=== PATIENT | female | born 1980 | race Caucasian/White ===

== ENCOUNTER 2017-05-19 19:01 | Emergency (ER) | payer MEDICAID ==
[2017-05-19] MEDS ORDERED: Sodium Chloride 0.9% 10 ML Syringe FLUSH PRN (20:32)
[2017-05-19] MEDS ORDERED: Ketorolac 30 MG/ML SDV IVPUSH ONE (20:33)
[2017-05-19] MEDS ORDERED: Ondansetron 4 MG/2 ML SDV IVPUSH ONE (20:33)
--- NOTE | 2017-05-19 20:35 | EDM.PDOC ---
ED HPI GENERAL MEDICAL PROBLEM - General Chief Complaint: Abdominal Pain Stated Complaint: ABDOMIN PAIN IN LOWER OVARY AERA Time Seen by Provider: 05/19/17 20:33 Source of Information: Reports: Patient, RN Notes Reviewed History Limitations: Reports: No Limitations - History of Present Illness INITIAL COMMENTS - FREE TEXT/NARRATIVE: 36-year-old female presents emergency department day complaint of abdominal pain , she states been going on for about 3 days his progressively gotten worse the pain is fairly constant but it does get more intense at times she does feel nauseated no vomiting no trouble with bowel movements or urination does have a history of ovarian cysts only abdominal surgeries or section Bilateral Abdomen Pain Score (Numeric/FACES): 7 - Related Data Allergies Allergy/AdvReac Type Severity Reaction Status Date / Time ancids Allergy Swelling Uncoded 05/19/17 19:53 Home Meds: Home Meds metFORMIN [Glucophage] 500 mg PO BIDMEALS 05/19/17 [History] Past Medical History Genitourinary History: Reports: Other (See Below) Other Genitourinary History: hx of ovarian cysts 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: Endocrine/Metabolic History: Reports: Diabetes, Type II Hematologic History: Reports: Blood Transfusion(s) - Infectious Disease History Infectious Disease History: Reports: Chicken Pox - Past Surgical History Female Surgical History: Reports: Section Social & Family History - Tobacco Use Smoking Status *Q: Current Every Day Smoker Years of Tobacco use: 20 Packs/Tins Daily: 0.5 Used Tobacco, but Quit: No Second Hand Smoke Exposure: Yes - Caffeine Use Caffeine Use: Reports: Coffee, Soda - Recreational Drug Use Recreational Drug Use: No ED ROS GENERAL - Review of Systems Review Of Systems: See Below Constitutional: Denies: Fever, Chills HEENT: Reports: No Symptoms Respiratory: Reports: No Symptoms Cardiovascular: Reports: No Symptoms GI/Abdominal: Reports: Abdominal Pain, Nausea. Denies: Vomiting : Reports: No Symptoms Musculoskeletal: Reports: No Symptoms Skin: Reports: No Symptoms ED EXAM, GI/ABD - Physical Exam Exam: See Below Text/Narrative:: General: Female, moderate discomfort secondary to pain, alert and oriented x3 HEENT: head is atraumatic normocephalic, eyes pupils equal round reactive to light, sclera clear no conjunctivitis appreciated. Ears tympanic membranes clear and valenzuela landmarks and light reflex are present bilaterally canals are clear. Nose no septal deviation, nares are clear, no blood present. Mouth mucosa is moist and pink no erythema or exudate noted in soft palate, tongue is midline uvula is midline, dentition is intact. Neck: Supple no thyromegaly no tracheal deviation. Nodes: Cervical nodes subclavicular nodes nontender no palpable lymphadenopathy noted. Lungs: clear to auscultation bilaterally with symmetrical respirations, no adventitious noise appreciated. CV: Regular rate and rhythm S1 and S2 appreciated no murmurs rubs or gallops noted. Abdomen: Soft, tender left lower quadrant, no palpable masses or organomegaly appreciated, no distention positive for guarding bowel sounds are present, . Neuro: Cranial nerves II through XII grossly intact Skin: Warm and dry, intact Extremities: No lower extremity edema appreciated, Course - Vital Signs Last Recorded V/S: Last Vital Signs Temp 97.6 F 05/19/17 20:00 Pulse 74 05/19/17 22:03 Resp 18 05/19/17 22:03 BP 124/62 05/19/17 22:03 Pulse Ox 97 05/19/17 22:03 - Orders/Labs/Meds Orders: Active Orders 24 hr Category Date Time Status Peripheral IV Care [RC] . DIRECTED Care 05/19/17 20:32 Active Abdomen Pelvis w Cont [CT] Urgent Exams 05/19/17 20:32 Taken Iopamidol [Isovue-300 (61%)] Med 05/19/17 21:08 Active 150 ml IV . DIRECTED PRN Sodium Chloride 0.9% [Normal Saline] 1,000 ml Med 05/19/17 20:45 Active IV ASDIRECTED Sodium Chloride 0.9% [Normal Saline] 86 ml Med 05/19/17 21:15 Active IV ASDIRECTED Sodium Chloride 0.9% [Saline Flush] Med 05/19/17 20:32 Active 10 ml FLUSH ASDIRECTED PRN Peripheral IV Insertion Adult [OM.PC] Urgent Oth 05/19/17 20:32 Ordered Medication Orders Sodium Chloride (Normal Saline) 1,000 mls @ 999 mls/hr IV ASDIRECTED CIRO Last Admin: 05/19/17 20:56 Dose: 999 mls/hr Sodium Chloride (Normal Saline) 86 mls @ 3 mls/sec IV ASDIRECTED CIRO Last Admin: 05/19/17 21:37 Dose: 3.5 mls/sec Iopamidol (Isovue-300 (61%)) 150 ml IV . DIRECTED PRN PRN Reason: RADIOLOGY EXAM Stop: 05/20/17 21:09 Last Admin: 05/19/17 21:37 Dose: 150 ml Sodium Chloride (Saline Flush) 10 ml FLUSH ASDIRECTED PRN PRN Reason: Keep Vein Open Labs: Laboratory Tests 05/19/17 05/19/17 05/19/17 Range/Units 20:32 20:45 20:45 WBC 8.3 (4.5-11.0) K/uL RBC 5.40 (3.30-5.50) M/uL Hgb 16.7 H (12.0-15.0) g/dL Hct 48.1 H (36.0-48.0) % MCV 89 (80-98) fL MCH 31 (27-31) pg MCHC 35 (32-36) % Plt Count 211 (150-400) K/uL Neut % (Auto) 39 (36-66) % Lymph % (Auto) 47 H (24-44) % [place] % (Auto) 8 H (2-6) % Eos % (Auto) 3 (2-4) % Baso % (Auto) 2 H (0-1) % Sodium 137 L (140-148) mmol/L Potassium 4.1 (3.6-5.2) mmol/L Chloride 104 (100-108) mmol/L Carbon Dioxide 25 (21-32) mmol/L Anion Gap 12.1 (5.0-14.0) mmol/L BUN 7 (7-18) mg/dL Creatinine 0.6 (0.6-1.0) mg/dL Est Cr Clr Drug Dosing 105.16 mL/min Estimated GFR (MDRD) > 60 (>60) Glucose 89 (74-106) mg/dL Lactic Acid 1.3 (0.4-2.0) mmol/L Calcium 9.0 (8.5-10.1) mg/dL Total Bilirubin 0.3 (0.2-1.0) mg/dL AST 33 (15-37) U/L ALT 40 (12-78) U/L Alkaline Phosphatase 74 (46-116) U/L Total Protein 8.4 H (6.4-8.2) g/dL Albumin 3.7 (3.4-5.0) g/dL Globulin 4.7 H (2.3-3.5) g/dL Albumin/Globulin Ratio 0.8 L (1.2-2.2) Lipase 282 (73-393) U/L Urine Color Urine Appearance Urine pH (4.5-8.0) Ur Specific [place] (1.008-1.030) Urine Protein (NEGATIVE) mg/dL Urine Glucose (UA) (NEGATIVE) mg/dL Urine Ketones (NEGATIVE) mg/dL Urine Occult Blood (NEGATIVE) Urine Nitrite (NEGATIVE) Urine Bilirubin (NEGATIVE) Urine Urobilinogen (NORMAL) mg/dL Ur Leukocyte Esterase (NEGATIVE) Urine RBC (0-5) Urine WBC (0-5) Ur Epithelial Cells Amorphous Sediment Urine Bacteria Urine Mucus Urine HCG, Qual 05/19/17 05/19/17 Range/Units 20:50 20:50 WBC (4.5-11.0) K/uL RBC (3.30-5.50) M/uL Hgb (12.0-15.0) g/dL Hct (36.0-48.0) % MCV (80-98) fL MCH (27-31) pg MCHC (32-36) % Plt Count (150-400) K/uL Neut % (Auto) (36-66) % Lymph % (Auto) (24-44) % [place] % (Auto) (2-6) % Eos % (Auto) (2-4) % Baso % (Auto) (0-1) % Sodium (140-148) mmol/L Potassium (3.6-5.2) mmol/L Chloride (100-108) mmol/L Carbon Dioxide (21-32) mmol/L Anion Gap (5.0-14.0) mmol/L BUN (7-18) mg/dL Creatinine (0.6-1.0) mg/dL Est Cr Clr Drug Dosing mL/min Estimated GFR (MDRD) (>60) Glucose (74-106) mg/dL Lactic Acid (0.4-2.0) mmol/L Calcium (8.5-10.1) mg/dL Total Bilirubin (0.2-1.0) mg/dL AST (15-37) U/L ALT (12-78) U/L Alkaline Phosphatase (46-116) U/L Total Protein (6.4-8.2) g/dL Albumin (3.4-5.0) g/dL Globulin (2.3-3.5) g/dL Albumin/Globulin Ratio (1.2-2.2) Lipase (73-393) U/L Urine Color Yellow Urine Appearance Clear Urine pH 6.0 (4.5-8.0) Ur Specific [place] 1.015 (1.008-1.030) Urine Protein Negative (NEGATIVE) mg/dL Urine Glucose (UA) Normal (NEGATIVE) mg/dL Urine Ketones Negative (NEGATIVE) mg/dL Urine Occult Blood Negative (NEGATIVE) Urine Nitrite Negative (NEGATIVE) Urine Bilirubin Negative (NEGATIVE) Urine Urobilinogen Normal (NORMAL) mg/dL Ur Leukocyte Esterase Negative (NEGATIVE) Urine RBC Not seen (0-5) Urine WBC 0-5 (0-5) Ur Epithelial Cells Few Amorphous Sediment Not seen Urine Bacteria Few Urine Mucus Rare Urine HCG, Qual Negative Meds: Medications Generic Name Dose Route Start Last Admin Trade Name Freq PRN Reason Stop Dose Admin Sodium Chloride 1,000 mls @ 999 mls/hr 05/19/17 20:45 05/19/17 20:56 Normal Saline IV 999 mls/hr ASDIRECTED CIRO Administration Sodium Chloride 86 mls @ 3 mls/sec 05/19/17 21:15 05/19/17 21:37 Normal Saline IV 3.5 mls/sec ASDIRECTED CIRO Administration Iopamidol 150 ml 05/19/17 21:08 05/19/17 21:37 Isovue-300 (61%) IV 05/20/17 21:09 150 ml . DIRECTED PRN Administration RADIOLOGY EXAM Sodium Chloride 10 ml 05/19/17 20:32 Saline Flush FLUSH ASDIRECTED PRN Keep Vein Open Discontinued Medications Generic Name Dose Route Start Last Admin Trade Name Freq PRN Reason Stop Dose Admin Ketorolac Tromethamine 30 mg 05/19/17 20:33 05/19/17 20:58 Toradol IVPUSH 05/19/17 20:34 30 mg ONETIME ONE Administration Ondansetron HCl 4 mg 05/19/17 20:33 05/19/17 20:57 Zofran IVPUSH 05/19/17 20:34 4 mg ONETIME ONE Administration Sodium Chloride 10 ml 05/19/17 21:08 Saline Flush FLUSH 05/19/17 21:09 ONETIME ONE Departure - Departure Time of Disposition: 23:00 Disposition: Home, Self-Care 01 Condition: Good Clinical Impression: Cyst, ovary, follicular - Discharge Information Forms: ED Department Discharge Additional Instructions: Use ibuprofen for baseline pain control, use hydrocodone for breakthrough pain, Please followup with your primary care provider in 2-3 days if not better, please call return to the emergency department with worsening of symptoms. - My Orders Last 24 Hours: My Active Orders 05/19/17 20:32 Peripheral IV Care [RC] . DIRECTED Abdomen Pelvis w Cont [CT] Urgent Sodium Chloride 0.9% [Saline Flush] 10 ml FLUSH ASDIRECTED PRN Peripheral IV Insertion Adult [OM.PC] Urgent 05/19/17 20:45 Sodium Chloride 0.9% [Normal Saline] 1,000 ml IV ASDIRECTED 05/19/17 21:08 Iopamidol [Isovue-300 (61%)] 150 ml IV . DIRECTED PRN 05/19/17 21:15 Sodium Chloride 0.9% [Normal Saline] 86 ml IV ASDIRECTED - Assessment/Plan Last 24 Hours: My Active Orders 05/19/17 20:32 Peripheral IV Care [RC] . DIRECTED Abdomen Pelvis w Cont [CT] Urgent Sodium Chloride 0.9% [Saline Flush] 10 ml FLUSH ASDIRECTED PRN Peripheral IV Insertion Adult [OM.PC] Urgent 05/19/17 20:45 Sodium Chloride 0.9% [Normal Saline] 1,000 ml IV ASDIRECTED 05/19/17 21:08 Iopamidol [Isovue-300 (61%)] 150 ml IV . DIRECTED PRN 05/19/17 21:15 Sodium Chloride 0.9% [Normal Saline] 86 ml IV ASDIRECTED Plan: Assessment Acuity = acute Site and laterality = right involuting follicle ovary Etiology = unclear etiology Manifestations = pain, nausea Location of injury = Home Lab values = CBC unremarkable sodium low at 137 consistent hyponatremia, urinalysis unremarkable, CT describes the lesion above Plan I did review lab work and CT scan results with her she was provided hydrocodone for pain control follow up with primary care in 2-3 days for reevaluation Patient was in agreement with the plan all questions were answered, they were instructed to return to the emergency department or call for worsening symptoms. This note was dictated using [employer] voice recognition software please call with any questions.
[2017-05-19] MEDS ORDERED: Sodium Chloride 0.9% 1,000 ML IV SCH (20:45)
[2017-05-19] MEDS ORDERED: Iopamidol 612 MG/ML 150 ML Bottle IV PRN (21:08)
[2017-05-19] MEDS ORDERED: Sodium Chloride 0.9% 10 ML Syringe FLUSH ONE (21:08)
[2017-05-19] MEDS ORDERED: Sodium Chloride 0.9% 86 ML IV SCH (21:15)
[2017-05-19 23:15] VITALS: BP 127/71
== END 2017-05-19 23:10 | disposition home or self-care (01) ==
LOC: JP.ED 19:01
DX: N83.01 Follicular cyst of right ovary (principal); E11.9 Type 2 diabetes mellitus without complications; F17.210 Nicotine dependence, cigarettes, uncomplicated; Z79.84 Long term (current) use of oral hypoglycemic drugs; Z88.8 Allergy status to other drugs, medicaments and biological substances; Z98.890 Other specified postprocedural states
CPT/HCPCS: 36415; 74177; 80053; 81001; 81025; 83605; 83690; 85025; 96361; 96374; 96375; 99284; J1885; J2405; J7030; J7040

== ENCOUNTER 2017-06-09 13:39 | Emergency (ER) | payer MEDICAID ==
[2017-06-09] MEDS ORDERED: oxyCODONE 5 MG Tab PO ONE (14:25)
--- NOTE | 2017-06-09 14:35 | EDM.PDOC ---
ED HPI GENERAL MEDICAL PROBLEM - General Chief Complaint: Abdominal Pain Stated Complaint: PAINFUL ON LEFT SIDE OVERIES? Time Seen by Provider: 06/09/17 14:15 Source of Information: Reports: Patient History Limitations: Reports: No Limitations - History of Present Illness INITIAL COMMENTS - FREE TEXT/NARRATIVE: Tierney is a 36 year old female who presents to the emergency department today with complaints of left lower pelvic pain. Patient was diagnosed with a left ovarian cyst on May 16 in the emergency department and was sent home with primary care follow-up and Idalia. Patient did follow up with primary care where an ultrasound was obtained which showed a tilted uterus" and "burrs on her uterus", patient was informed she may need a hysterectomy and is due to follow up with her doctor when she returns from vacation in the next week or so. Patient reports her pain was better until yesterday when it became more significant. She has been taking Tylenol with no relief as she is allergic to NSAIDs. Patient denies any fever, she reports nausea that comes and goes. She denies any dysuria or vaginal discharge. Patient did have a pelvic exam done 2 weeks ago in clinic and was tested for vaginal infections and STDs all of which patient reports were negative. Patient reports ongoing issues with diarrhea since all of this started, she denies any blood in her stool.patient reports that her insurance coverage just started and she would like to follow up with a provider in [place]. 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: Endocrine/Metabolic History: Reports: Diabetes, Type II Hematologic History: Reports: Blood Transfusion(s) - Infectious Disease History Infectious Disease History: Reports: Chicken Pox - Past Surgical History Female Surgical History: Reports: Section Social & Family History - Tobacco Use Smoking Status *Q: Current Every Day Smoker Years of Tobacco use: 20 Packs/Tins Daily: 0.5 Used Tobacco, but Quit: No Second Hand Smoke Exposure: Yes - Caffeine Use Caffeine Use: Reports: Coffee, Soda - Recreational Drug Use Recreational Drug Use: No ED ROS GENERAL - Review of Systems Review Of Systems: ROS reveals no pertinent complaints other than HPI. ED EXAM, RENAL/ - Physical Exam Exam: See Below Exam Limited By: No Limitations General Appearance: Alert, WD/WN, Mild Distress Nose: Normal Inspection Throat/Mouth: Normal Inspection, Normal Oropharynx Head: Atraumatic Neck: Normal Inspection, Supple, Non-Tender Respiratory/Chest: No Respiratory Distress, Lungs Clear Cardiovascular: Normal Peripheral Pulses, Regular Rate, Rhythm, No Murmur GI/Abdominal: Normal Bowel Sounds, Soft, No Organomegaly, No Distention, No Mass , Tender (Left pelvic region) Back Exam: Normal Inspection Extremities: Normal Inspection Neurological: Alert, Oriented, CN II-XII Intact Psychiatric: Normal Affect, Normal Mood Skin Exam: Warm, Dry, Intact Lymphatic: No Adenopathy Course - Vital Signs Last Recorded V/S: Last Vital Signs Temp 36.4 C 06/09/17 14:11 Pulse 90 06/09/17 14:11 Resp 18 06/09/17 14:11 BP 114/64 06/09/17 15:50 Pulse Ox 95 06/09/17 14:11 Tierney is a 36-year-old female who presents to the emergency department today with complaints of left-sided pelvic pain, please refer to history of present illness and focused exam. Patient has known polycystic ovarian syndrome and has been evaluated in clinic and here in the past for her symptoms. Ultrasound was obtained today to rule out torsion and is negative, it is negative for any other new acute findings. Blood work is reassuring. Patient was given a dose of oxycodone here with best improvement in her pain. Patient was referred to either [facility] or essential [facility] in [place] for follow-up, I did send her home with a small supply of Idalia, patient does not have any worrisome opioid abuse issues according to the [place] prescription monitoring program. Urinalysis was also negative for infection. Reasons to return were discussed with patient, she is agreeable and discharged in stable condition. - Orders/Labs/Meds Orders: Active Orders 24 hr Category Date Time Status Pelvis Non OB Comp [US] Stat Exams 06/09/17 14:27 Taken Transvaginal Non OB [US] Stat Exams 06/09/17 14:47 Taken VL Duplex Abd Pel Ret Ltd [US] Stat Exams 06/09/17 Ordered Labs: Laboratory Tests 06/09/17 06/09/17 06/09/17 Range/Units 14:37 14:37 14:44 WBC 8.6 (4.5-11.0) K/uL RBC 4.91 (3.30-5.50) M/uL Hgb 15.5 H (12.0-15.0) g/dL Hct 44.7 (36.0-48.0) % MCV 91 (80-98) fL MCH 32 H (27-31) pg MCHC 35 (32-36) % Plt Count 188 (150-400) K/uL Neut % (Auto) 50 (36-66) % Lymph % (Auto) 38 (24-44) % [place] % (Auto) 9 H (2-6) % Eos % (Auto) 3 (2-4) % Baso % (Auto) 1 (0-1) % Sodium 139 L (140-148) mmol/L Potassium 4.1 (3.6-5.2) mmol/L Chloride 107 (100-108) mmol/L Carbon Dioxide 26 (21-32) mmol/L Anion Gap 10.1 (5.0-14.0) mmol/L BUN 9 (7-18) mg/dL Creatinine 0.7 (0.6-1.0) mg/dL Est Cr Clr Drug Dosing 90.14 mL/min Estimated GFR (MDRD) > 60 (>60) Glucose 89 (74-106) mg/dL Calcium 8.7 (8.5-10.1) mg/dL Total Bilirubin 0.3 (0.2-1.0) mg/dL AST 39 H (15-37) U/L ALT 49 (12-78) U/L Alkaline Phosphatase 67 (46-116) U/L Total Protein 7.4 (6.4-8.2) g/dL Albumin 3.3 L (3.4-5.0) g/dL Globulin 4.1 H (2.3-3.5) g/dL Albumin/Globulin Ratio 0.8 L (1.2-2.2) Urine Color Urine Appearance Urine pH (4.5-8.0) Ur Specific [place] (1.008-1.030) Urine Protein (NEGATIVE) mg/dL Urine Glucose (UA) (NEGATIVE) mg/dL Urine Ketones (NEGATIVE) mg/dL Urine Occult Blood (NEGATIVE) Urine Nitrite (NEGATIVE) Urine Bilirubin (NEGATIVE) Urine Urobilinogen (NORMAL) mg/dL Ur Leukocyte Esterase (NEGATIVE) Urine RBC (0-5) Urine WBC (0-5) Ur Epithelial Cells Amorphous Sediment Urine Bacteria Urine Mucus Urine HCG, Qual Negative 06/09/17 Range/Units 14:44 WBC (4.5-11.0) K/uL RBC (3.30-5.50) M/uL Hgb (12.0-15.0) g/dL Hct (36.0-48.0) % MCV (80-98) fL MCH (27-31) pg MCHC (32-36) % Plt Count (150-400) K/uL Neut % (Auto) (36-66) % Lymph % (Auto) (24-44) % [place] % (Auto) (2-6) % Eos % (Auto) (2-4) % Baso % (Auto) (0-1) % Sodium (140-148) mmol/L Potassium (3.6-5.2) mmol/L Chloride (100-108) mmol/L Carbon Dioxide (21-32) mmol/L Anion Gap (5.0-14.0) mmol/L BUN (7-18) mg/dL Creatinine (0.6-1.0) mg/dL Est Cr Clr Drug Dosing mL/min Estimated GFR (MDRD) (>60) Glucose (74-106) mg/dL Calcium (8.5-10.1) mg/dL Total Bilirubin (0.2-1.0) mg/dL AST (15-37) U/L ALT (12-78) U/L Alkaline Phosphatase (46-116) U/L Total Protein (6.4-8.2) g/dL Albumin (3.4-5.0) g/dL Globulin (2.3-3.5) g/dL Albumin/Globulin Ratio (1.2-2.2) Urine Color Yellow Urine Appearance Turbid Urine pH 7.0 (4.5-8.0) Ur Specific [place] 1.015 (1.008-1.030) Urine Protein Negative (NEGATIVE) mg/dL Urine Glucose (UA) Normal (NEGATIVE) mg/dL Urine Ketones Negative (NEGATIVE) mg/dL Urine Occult Blood Negative (NEGATIVE) Urine Nitrite Negative (NEGATIVE) Urine Bilirubin Negative (NEGATIVE) Urine Urobilinogen Normal (NORMAL) mg/dL Ur Leukocyte Esterase Negative (NEGATIVE) Urine RBC 0-5 (0-5) Urine WBC 0-5 (0-5) Ur Epithelial Cells Many Amorphous Sediment Moderate Urine Bacteria Few Urine Mucus Moderate Urine HCG, Qual Meds: Medications Discontinued Medications Generic Name Dose Route Start Last Admin Trade Name Rebecca PRN Reason Stop Dose Admin Oxycodone HCl 10 mg 06/09/17 14:25 06/09/17 14:35 Oxycodone PO 06/09/17 14:26 10 mg ONETIME ONE Administration Departure - Departure Time of Disposition: 16:45 Disposition: Home, Self-Care 01 Condition: Good Clinical Impression: Pelvic pain, PCOS (polycystic ovarian syndrome) - Discharge Information Instructions: Polycystic Ovarian Syndrome Referrals: Roula Garcia MD [Primary Care Provider] - Forms: ED Department Discharge Additional Instructions: Tierney, Take medications as prescribed. These are narcotics, do not drive if you take them. I have provided you with contact information for both [facility] and [facility] for [facility] follow up, please call to schedule tomorrow for follow up. [facility] Supervisor [phone] [phone] - [facility] [address] [place] [address] map it General Contact: - My Orders Last 24 Hours: My Active Orders 06/09/17 VL Duplex Abd Pel Ret Ltd [US] Stat 06/09/17 14:27 Pelvis Non OB Comp [US] Stat 06/09/17 14:47 Transvaginal Non OB [US] Stat - Assessment/Plan Last 24 Hours: My Active Orders 06/09/17 VL Duplex Abd Pel Ret Ltd [US] Stat 06/09/17 14:27 Pelvis Non OB Comp [US] Stat 06/09/17 14:47 Transvaginal Non OB [US] Stat
[2017-06-09 16:13] VITALS: BP 114/64
== END 2017-06-09 16:49 | disposition home or self-care (01) ==
LOC: JP.ED 13:39
DX: E28.2 Polycystic ovarian syndrome (principal); E11.9 Type 2 diabetes mellitus without complications; F17.210 Nicotine dependence, cigarettes, uncomplicated; Z79.84 Long term (current) use of oral hypoglycemic drugs; Z88.8 Allergy status to other drugs, medicaments and biological substances
CPT/HCPCS: 36415; 76830; 76856; 80053; 81001; 81025; 85025; 93976; 99284; A9270

== ENCOUNTER 2017-07-01 20:50 | Emergency (ER) | payer MEDICAID ==
[2017-07-01 21:04] VITALS: BP 151/107
--- NOTE | 2017-07-01 21:48 | EDM.PDOC ---
ED HPI GENERAL MEDICAL PROBLEM - General Chief Complaint: SYSTEMS SOFTWARE DESIGNER Problem Stated Complaint: LOWER ABD PAIN Time Seen by Provider: 07/01/17 21:10 Source of Information: Reports: Patient History Limitations: Reports: No Limitations - History of Present Illness INITIAL COMMENTS - FREE TEXT/NARRATIVE: 37-year-old female complaining of chronic pelvic pain. Her history is she has had visit with SYSTEMS SOFTWARE DESIGNER in [place] 7 days ago where she had a consultation for chronic pelvic pain. According to the patient an exam was done and they discussed possible hysterectomy versus medical treatment. However in reviewing her records her last SYSTEMS SOFTWARE DESIGNER visit was on May 23, at that time when she wasn' t provided stronger pain medication she left without treatment and became agitated. She claims she saw David Garcia of SYSTEMS SOFTWARE DESIGNER in [place] last Saturday which was 7 days ago. I talked with Dr. Garcia and he remembers her possibly being on the schedule and may have seen her but is somewhat confused as to why there would be no records of the visit on the electronic chart. It is possible that she was seen but it's just not recorded yet. According to her she tried to contact him Saturday and today, she hasn't gotten a call back and she needs something for pain. She has not developed any new symptoms such as nausea or vomiting, fever or diarrhea. The pain is very similar to what she's been experiencing for months. Location: Reports: Abdomen (Lower abdomen and pelvis), Pelvis Quality: Reports: Ache, Pressure Severity: Moderate Worsens with: Reports: Movement Associated Symptoms: Reports: Malaise. Denies: Fever/Chills, Loss of Appetite Lower Pelvic Pain Score (Numeric/FACES): 8 - Related Data Allergies Allergy/AdvReac Type Severity Reaction Status Date / Time ancids Allergy Swelling Uncoded 07/01/17 21:07 Home Meds: Home Meds metFORMIN [Glucophage] 500 mg PO BIDMEALS 05/19/17 [History] Bp Pill 07/01/17 [History] Past Medical History Cardiovascular History: Reports: Hypertension Genitourinary History: Reports: Other (See Below) Other Genitourinary History: hx of ovarian cysts SYSTEMS SOFTWARE DESIGNER History: Reports: Polycystic Ovaries, Endocrine/Metabolic History: Reports: Obesity/BMI 30+ Hematologic History: Reports: Blood Transfusion(s) - Infectious Disease History Infectious Disease History: Reports: Chicken Pox - Past Surgical History Female Surgical History: Reports: Section, Other (See Below) Other Female Surgeries/Procedures: Procedure done to check for uterine cancer Social & Family History - Tobacco Use Smoking Status *Q: Current Every Day Smoker Years of Tobacco use: 20 Packs/Tins Daily: 0.5 Used Tobacco, but Quit: No Tobacco Use Comment: Light smoker Second Hand Smoke Exposure: Yes - Caffeine Use Caffeine Use: Reports: Coffee - Recreational Drug Use Recreational Drug Use: No ED ROS GENERAL - Review of Systems Review Of Systems: See Below Constitutional: Denies: Fever, Chills Respiratory: Denies: Shortness of Breath Cardiovascular: Denies: Chest Pain GI/Abdominal: Reports: Abdominal Pain. Denies: Constipation, Diarrhea, Decreased Appetite : Reports: No Symptoms. Denies: Dysuria Skin: Reports: No Symptoms Neurological: Denies: Headache ED EXAM, GI/ABD - Physical Exam Exam: See Below Exam Limited By: No Limitations General Appearance: Alert, No Apparent Distress (Appears uncomfortable but not distressed) Eyes: Bilateral: Normal Appearance (No jaundice) Respiratory/Chest: No Respiratory Distress, Lungs Clear Cardiovascular: Regular Rate, Rhythm. No: Tachycardia GI/Abdominal Exam: Soft, Tender (Reacts with tenderness to palpation across the lower abdomen, no focal guarding or rebound) Neurological: Alert, Oriented Psychiatric: Normal Affect, Normal Mood Skin Exam: Warm, Dry Course - Vital Signs Last Recorded V/S: Last Vital Signs Temp 96.8 F 07/01/17 21:01 Pulse 98 07/01/17 21:01 Resp 20 07/01/17 21:01 BP 151/107 H 07/01/17 21:01 Pulse Ox 95 07/01/17 21:01 - Re-Assessments/Exams Free Text/Narrative Re-Assessment/Exam: 07/01/17 23:10 Reviewed her records in their entirety, she has had a normal pelvic ultrasound and normal CT scan in just the last few weeks. She has had several prescriptions for narcotics over the past month and then concerned that workups have been negative and there is no record of her visit with SYSTEMS SOFTWARE DESIGNER supposedly a week ago. She was supplied with 6 Vicodin to use tonight for pain but she needs to contact her regular providers tomorrow for further treatment and advice. Departure - Departure Time of Disposition: 21:56 Disposition: Home, Self-Care 01 Condition: Good Clinical Impression: Pelvic pain - Discharge Information Instructions: Pain Medicine Instructions, [id number] Referrals: Viky Garcia I PBX TECHNICIAN [Primary Care Provider] - Forms: ED Department Discharge Care Plan Goals: Call SYSTEMS SOFTWARE DESIGNER in [place] tomorrow for any further care or treatment.
== END 2017-07-01 21:56 | disposition home or self-care (01) ==
LOC: JP.ED 20:50
DX: R10.2 Pelvic and perineal pain (principal); I10 Essential (primary) hypertension; E66.9 Obesity, unspecified; F17.210 Nicotine dependence, cigarettes, uncomplicated; Z98.890 Other specified postprocedural states; Z88.8 Allergy status to other drugs, medicaments and biological substances; Z68.41 Body mass index [BMI] 40.0-44.9, adult
CPT/HCPCS: 99283; 99284

== ENCOUNTER 2017-07-24 18:51 | Emergency (ER) | payer MEDICAID ==
[2017-07-24 19:05] VITALS: BP 141/102
--- NOTE | 2017-07-24 19:54 | EDM.PDOC ---
ED HPI GENERAL MEDICAL PROBLEM - General Chief Complaint: Abdominal Pain Stated Complaint: LOWER ABDOMEN PAIN Time Seen by Provider: 07/24/17 19:19 Source of Information: Reports: Patient History Limitations: Reports: No Limitations - History of Present Illness INITIAL COMMENTS - FREE TEXT/NARRATIVE: This patient has polycystic ovarian disease. She gets severe pain with her menstrual periods that's been going on for over a year. It's Worse for the past 4 months. She has seen MANAGER LEGAL and is supposed to get a hysterectomy as soon as that can be okayed by the insurance company. Her latest menstrual period began today. She's having her usual amount of bleeding but the cramping this seems real severe. She's taken some Tylenol for it. She can't take any NSAIDs because it causes a rash and once caused her to stop breathing. She denies any fever Abdominal Pain Score (Numeric/FACES): 7 - Related Data Allergies Allergy/AdvReac Type Severity Reaction Status Date / Time ancids Allergy Swelling Uncoded 07/01/17 21:07 Home Meds: Home Meds metFORMIN [Glucophage] 500 mg PO BIDMEALS 05/19/17 [History] Propranolol HCl [Propranolol] 10 mg PO BID 07/24/17 [History] Past Medical History HEENT History: Reports: Allergic Rhinitis Cardiovascular History: Reports: Hypertension Genitourinary History: Reports: Other (See Below) Other Genitourinary History: hx of ovarian cysts MANAGER LEGAL History: Reports: Polycystic Ovaries, Endocrine/Metabolic History: Reports: Obesity/BMI 30+ Hematologic History: Reports: Blood Transfusion(s) - Infectious Disease History Infectious Disease History: Reports: Chicken Pox - Past Surgical History Female Surgical History: Reports: Section, Other (See Below) Other Female Surgeries/Procedures: Procedure done to check for uterine cancer Social & Family History - Family History Family Medical History: Noncontributory - Tobacco Use Smoking Status *Q: Current Some Day Smoker Years of Tobacco use: 10 Packs/Tins Daily: 0.2 Used Tobacco, but Quit: No Second Hand Smoke Exposure: Yes - Caffeine Use Caffeine Use: Reports: Coffee, Soda - Recreational Drug Use Recreational Drug Use: No ED ROS GENERAL - Review of Systems Review Of Systems: ROS reveals no pertinent complaints other than HPI. ED EXAM, RENAL/ - Physical Exam Exam: See Below Exam Limited By: No Limitations General Appearance: Alert, WD/WN, Mild Distress Respiratory/Chest: Lungs Clear Cardiovascular: Regular Rate, Rhythm GI/Abdominal: Soft, Non-Tender Neurological: Alert, Oriented Psychiatric: Normal Affect Skin Exam: Warm, Dry Course - Vital Signs Last Recorded V/S: Last Vital Signs Temp 36.5 C 07/24/17 19:02 Pulse 97 07/24/17 19:02 Resp 18 07/24/17 19:02 BP 141/102 H 07/24/17 19:02 Pulse Ox 97 07/24/17 19:02 Departure - Departure Time of Disposition: 19:53 Disposition: Home, Self-Care 01 Condition: Fair Clinical Impression: Severe dysmenorrhea, Polycystic ovarian disease - Discharge Information Referrals: Viky Garcia I, LIFT TEAM TECHNICIAN [Primary Care Provider] - Additional Instructions: Use Narco 5/325, #20 tablets, one or 2 tablets every 4 hours as needed for pain. This medication can cause sedation and impair driving. Don't take any extra Tylenol as long as you're taking the Narco. Follow-up with your doctor as needed.
== END 2017-07-24 20:04 | disposition home or self-care (01) ==
LOC: JP.ED 18:51
DX: N94.6 Dysmenorrhea, unspecified (principal); E28.2 Polycystic ovarian syndrome; I10 Essential (primary) hypertension; E66.9 Obesity, unspecified; F17.210 Nicotine dependence, cigarettes, uncomplicated; Z88.8 Allergy status to other drugs, medicaments and biological substances
CPT/HCPCS: 99284

== ENCOUNTER 2017-08-11 10:08 | Emergency (ER) | payer MEDICAID ==
[2017-08-11 10:33] VITALS: BP 145/99
[2017-08-11] MEDS ORDERED: Ketorolac 60 MG/2 ML SDV IM ONE (10:53)
--- NOTE | 2017-08-11 11:09 | EDM.PDOC ---
ED HPI GENERAL MEDICAL PROBLEM - General Chief Complaint: Abdominal Pain Stated Complaint: ABD/PELVIC PAIN Time Seen by Provider: 08/11/17 10:40 Source of Information: Reports: Patient History Limitations: Reports: No Limitations - History of Present Illness INITIAL COMMENTS - FREE TEXT/NARRATIVE: 37-year-old female with chronic lower pelvic pain that we have seen several times in the last few months for pain control. No fevers or chills, symptoms are not a lot different than usual except they're worse today. She arrives tearful and uncomfortable. No nausea or vomiting, no fever, no dysuria. She is waiting for approval to get a hysterectomy. She is allergic to "all NSAIDS" and no one will do anything for her according to the patient. Onset: Unknown/Unsure Duration: Chronic, Waxing/Waning Severity: Moderate Pelvic Pain Score (Numeric/FACES): 7 - Related Data Allergies Allergy/AdvReac Type Severity Reaction Status Date / Time NSAIDS (Non-Steroidal Allergy Anaphylactic Verified 08/11/17 10:41 Anti-Inflamma Shock Home Meds: Home Meds metFORMIN [Glucophage] 500 mg PO BIDMEALS 05/19/17 [History] Propranolol HCl [Propranolol] 10 mg PO BID 07/24/17 [History] Past Medical History HEENT History: Reports: Allergic Rhinitis Cardiovascular History: Reports: Hypertension Genitourinary History: Reports: Other (See Below) Other Genitourinary History: hx of ovarian cysts 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: Polycystic 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, Endocrine/Metabolic History: Reports: Obesity/BMI 30+ Hematologic History: Reports: Blood Transfusion(s) - Infectious Disease History Infectious Disease History: Reports: Chicken Pox - Past Surgical History Female Surgical History: Reports: Section, Other (See Below) Other Female Surgeries/Procedures: Procedure done to check for uterine cancer Social & Family History - Family History Family Medical History: Noncontributory - Tobacco Use Smoking Status *Q: Unknown Ever Smoked Years of Tobacco use: 10 Packs/Tins Daily: 0.2 Used Tobacco, but Quit: No Second Hand Smoke Exposure: Yes - Caffeine Use Caffeine Use: Reports: Coffee, Soda - Recreational Drug Use Recreational Drug Use: No ED ROS GENERAL - Review of Systems Review Of Systems: See Below Constitutional: Denies: Fever, Chills Respiratory: Denies: Shortness of Breath Cardiovascular: Denies: Chest Pain GI/Abdominal: Reports: Abdominal Pain : Reports: No Symptoms Skin: Reports: No Symptoms Neurological: Reports: No Symptoms ED EXAM, GENERAL - Physical Exam Exam: See Below Exam Limited By: No Limitations General Appearance: Alert, Mild Distress (Appears uncomfortable, tearful initially) Respiratory/Chest: No Respiratory Distress, Lungs Clear Cardiovascular: Regular Rate, Rhythm GI/Abdominal: Tender (Reacts with tenderness to palpation across the lower abdomen) Neurological: Alert, Oriented Skin Exam: Warm, Dry Course - Vital Signs Last Recorded V/S: Last Vital Signs Temp 97.3 F 08/11/17 10:38 Pulse 87 08/11/17 10:38 Resp 18 08/11/17 10:38 BP 145/99 H 08/11/17 10:38 Pulse Ox 97 08/11/17 10:38 - Orders/Labs/Meds Meds: Medications Discontinued Medications Generic Name Dose Route Start Last Admin Trade Name Freq PRN Reason Stop Dose Admin Ketorolac Tromethamine 60 mg 08/11/17 10:53 08/11/17 10:50 Toradol IM 08/11/17 10:54 Not Given ONETIME ONE - Re-Assessments/Exams Free Text/Narrative Re-Assessment/Exam: 08/11/17 11:12 No further workup is necessary, this is a chronic recurring problem. I asked her what symptoms she gets from NSAIDs, specifically Toradol and she said she gets very nauseous and vomiting. I reassured her that that was likely the oral medication and we should try an IM dose as it is very unusual to react to IM Toradol. She agreed initially but when the nurse went in to give it she refused it. During that time I did a DIRECTOR CHANNEL search, she was given 60 10 mg hydrocodone 10 days ago which was to be taken every 8 hours. When I asked her if they weren't helping she said she "doesn't take them". She then decided to just leave because she was really here to get documented how uncomfortabe she was so her insurance would approve her surgery. When I went back into the room after she refused the Toradol she was on her phone and looked much more comfortable. Departure - Departure Time of Disposition: 11:20 Disposition: Home, Self-Care 01 Condition: Good Clinical Impression: Chronic female pelvic pain - Discharge Information Instructions: Pelvic Pain, Female, [id number] Referrals: Viky Garcia I, POCKET SETTER [Primary Care Provider] - Forms: ED Department Discharge Care Plan Goals: Continue your regular medications and recheck with Dr. Rodrigez or your primary care in the next several days if not improving satisfactorily.
== END 2017-08-11 11:20 | disposition home or self-care (01) ==
LOC: JP.ED 10:08
DX: G89.29 Other chronic pain (principal); R10.2 Pelvic and perineal pain; I10 Essential (primary) hypertension; Z88.8 Allergy status to other drugs, medicaments and biological substances
CPT/HCPCS: 99283; 99284

== ENCOUNTER 2017-10-08 18:24 | Emergency (ER) | payer MEDICAID ==
[2017-10-08] MEDS ORDERED: Acetaminophen/oxyCODONE 325-10 MG Tab PO ONE (19:50)
[2017-10-08] MEDS ORDERED: Iopamidol 612 MG/ML 150 ML Bottle IV SCH (20:00)
[2017-10-08] MEDS ORDERED: Sodium Chloride 0.9% 80 ML IV SCH (20:00)
[2017-10-08] MEDS: Sodium Chloride 0.9% 10 ML Syringe FLUSH PRN ×2 (20:00→20:12)
[2017-10-08 22:09] VITALS: BP 108/71
--- NOTE | 2017-10-08 22:23 | EDM.PDOC ---
ED HPI GENERAL MEDICAL PROBLEM - General Chief Complaint: Abdominal Pain Stated Complaint: SURGERY COMPLICATIONS Time Seen by Provider: 10/08/17 19:48 Source of Information: Reports: Patient History Limitations: Reports: No Limitations - History of Present Illness INITIAL COMMENTS - FREE TEXT/NARRATIVE: This patient said she had been a laparoscopic hysterectomy about 3 days ago. She 's having to help her mom take care of several kids. She's been doing a little bit of lifting lately like lifting the turkey and that type of thing and today a couple of the kids jumped on her abdomen. She complains of pain in the lower midline of the abdomen she's worried that there might be some bleeding. She's taking Narco for pain but doesn't seem to help. Left Lower Abdomen Pain Score (Numeric/FACES): 5 - Related Data Allergies Allergy/AdvReac Type Severity Reaction Status Date / Time NSAIDS (Non-Steroidal Allergy Anaphylactic Verified 10/08/17 19:04 Anti-Inflamma Shock Home Meds: Home Meds metFORMIN [Glucophage] 500 mg PO BIDMEALS 05/19/17 [History] Propranolol HCl [Propranolol] 10 mg PO BID 07/24/17 [History] Hydrocodone/Acetaminophen [Hydrocodon-Acetaminophn 10-325] 1 tab PO Q4H [History] Psyllium with Sucrose [Metamucil] 1 each PO DAILY 10/08/17 [History] Past Medical History HEENT History: Reports: Allergic Rhinitis Cardiovascular History: Reports: Hypertension Genitourinary History: Reports: Other (See Below) Other Genitourinary History: hx of ovarian cysts 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: Reports: 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, Endocrine/Metabolic History: Reports: Obesity/BMI 30+ Hematologic History: Reports: Blood Transfusion(s) - Infectious Disease History Infectious Disease History: Reports: Chicken Pox - Past Surgical History Female Surgical History: Reports: Section, Hysterectomy, Other (See Below) Other Female Surgeries/Procedures: Procedure done to check for uterine cancer Social & Family History - Family History Family Medical History: Noncontributory - Tobacco Use Smoking Status *Q: Current Every Day Smoker Years of Tobacco use: 10 Packs/Tins Daily: 0.2 Used Tobacco, but Quit: No Second Hand Smoke Exposure: Yes - Caffeine Use Caffeine Use: Reports: Coffee, Soda - Recreational Drug Use Recreational Drug Use: No ED ROS GENERAL - Review of Systems Review Of Systems: ROS reveals no pertinent complaints other than HPI. ED EXAM, GI/ABD - Physical Exam Exam: See Below Exam Limited By: No Limitations General Appearance: Alert, Moderate Distress, Obese Respiratory/Chest: Lungs Clear Cardiovascular: Regular Rate, Rhythm, No Murmur GI/Abdominal Exam: Other (About 3 small incisions to the lower abdomen consistent with the recent laparoscopic surgery. A small amount of bruising in these areas at normal post surgical changes. Normal tenderness) Extremities: Normal Inspection Neurological: Alert, Oriented Course - Vital Signs Last Recorded V/S: Last Vital Signs Temp 37.3 C 10/08/17 22:07 Pulse 96 10/08/17 22:07 Resp 16 10/08/17 22:07 BP 108/71 10/08/17 22:07 Pulse Ox 96 10/08/17 22:07 - Orders/Labs/Meds Orders: Active Orders 24 hr Category Date Time Status Abdomen Pelvis w Cont [CT] Stat Exams 10/08/17 19:51 Taken Iopamidol [Isovue-300 (61%)] Med 10/08/17 20:00 Active 150 ml IV . DIRECTED Sodium Chloride 0.9% [Normal Saline] 80 ml Med 10/08/17 20:00 Active IV ASDIRECTED Sodium Chloride 0.9% [Saline Flush] Med 10/08/17 19:49 Active 10 ml FLUSH ASDIRECTED PRN Saline Lock Insert [OM.PC] Urgent Oth 10/08/17 19:49 Ordered Medication Orders Sodium Chloride (Normal Saline) 80 mls @ 3 mls/sec IV ASDIRECTED CIRO Last Admin: 10/08/17 20:13 Dose: 3 mls/sec Iopamidol (Isovue-300 (61%)) 150 ml IV . DIRECTED CIRO Last Admin: 10/08/17 20:13 Dose: 150 ml Sodium Chloride (Saline Flush) 10 ml FLUSH ASDIRECTED PRN PRN Reason: Keep Vein Open Last Admin: 10/08/17 20:12 Dose: 10 ml Admin: 10/08/17 20:00 Dose: 10 ml Labs: Laboratory Tests 10/08/17 10/08/17 10/08/17 Range/Units 19:52 20:03 20:03 WBC 10.6 (4.5-11.0) K/uL RBC 5.16 (3.30-5.50) M/uL Hgb 16.2 H (12.0-15.0) g/dL Hct 46.7 (36.0-48.0) % MCV 91 (80-98) fL MCH 31 (27-31) pg MCHC 35 (32-36) % Plt Count 288 (150-400) K/uL Neut % (Auto) 48 (36-66) % Lymph % (Auto) 41 (24-44) % Rice % (Auto) 7 H (2-6) % Eos % (Auto) 3 (2-4) % Baso % (Auto) 0 (0-1) % Sodium 135 L (140-148) mmol/L Potassium 4.4 (3.6-5.2) mmol/L Chloride 101 (100-108) mmol/L Carbon Dioxide 24 (21-32) mmol/L Anion Gap 14.4 H (5.0-14.0) mmol/L BUN 8 (7-18) mg/dL Creatinine 0.6 (0.6-1.0) mg/dL Est Cr Clr Drug Dosing 104.13 mL/min Estimated GFR (MDRD) > 60 (>60) Glucose 108 H (74-106) mg/dL Calcium 8.8 (8.5-10.1) mg/dL Total Bilirubin 0.4 (0.2-1.0) mg/dL AST 41 H (15-37) U/L ALT 41 (12-78) U/L Alkaline Phosphatase 71 (46-116) U/L Total Protein 8.1 (6.4-8.2) g/dL Albumin 3.6 (3.4-5.0) g/dL Globulin 4.5 H (2.3-3.5) g/dL Albumin/Globulin Ratio 0.8 L (1.2-2.2) Urine Color Yellow Urine Appearance Clear Urine pH 7.0 (4.5-8.0) Ur Specific Ribera 1.015 (1.008-1.030) Urine Protein Negative (NEGATIVE) mg/dL Urine Glucose (UA) Normal (NEGATIVE) mg/dL Urine Ketones Negative (NEGATIVE) mg/dL Urine Occult Blood Negative (NEGATIVE) Urine Nitrite Negative (NEGATIVE) Urine Bilirubin Negative (NEGATIVE) Urine Urobilinogen Normal (NORMAL) mg/dL Ur Leukocyte Esterase Negative (NEGATIVE) Urine RBC 0-5 (0-5) Urine WBC 0-5 (0-5) Ur Epithelial Cells Few Amorphous Sediment Not seen Urine Bacteria Not seen Urine Mucus Not seen Meds: Medications Generic Name Dose Route Start Last Admin Trade Name Freq PRN Reason Stop Dose Admin Sodium Chloride 80 mls @ 3 mls/sec 10/08/17 20:00 10/08/17 20:13 Normal Saline IV 3 mls/sec ASDIRECTED CIRO Administration Iopamidol 150 ml 10/08/17 20:00 10/08/17 20:13 Isovue-300 (61%) IV 150 ml . DIRECTED CIRO Administration Sodium Chloride 10 ml 10/08/17 19:49 10/08/17 20:12 Saline Flush FLUSH 10 ml ASDIRECTED PRN Administration Keep Vein Open Discontinued Medications Generic Name Dose Route Start Last Admin Trade Name Freq PRN Reason Stop Dose Admin Oxycodone/Acetaminophen 1 tab 10/08/17 19:50 10/08/17 20:03 Percocet 325-10 Mg PO 10/08/17 19:51 1 tab ONETIME ONE Administration - Radiology Interpretation Free Text/Narrative:: CT of the abdomen shows no evidence of any postop bleeding - Re-Assessments/Exams Free Text/Narrative Re-Assessment/Exam: 10/08/17 22:21 Patient received Percocet 10/325 and that gave good pain relief 10/08/17 22:21 Note that her son is in the emergency department at the same time with a influenza-like illness and will be treated with Tamiflu. Therefore this patient will be put on prophylactic Tamiflu Departure - Departure Time of Disposition: 22:21 Disposition: Home, Self-Care 01 Condition: Fair Clinical Impression: Surgical aftercare, injury or trauma, Exposure to influenza - Discharge Information Referrals: Viky Garcia I, FORM WORKER [Primary Care Provider] - Additional Instructions: Instead of hydrocodone take Percocet 5/325 (15 tablets), one or 2 every 4 hours as needed for pain. This medication can cause sedation and impair driving or operating machinery. To help prevent influenza take Tamiflu 75 mg 1 tablet daily for one week. You may take it for a full 10 days if you wish - My Orders Last 24 Hours: My Active Orders 10/08/17 19:49 Sodium Chloride 0.9% [Saline Flush] 10 ml FLUSH ASDIRECTED PRN Saline Lock Insert [OM.PC] Urgent 10/08/17 19:51 Abdomen Pelvis w Cont [CT] Stat 10/08/17 20:00 Iopamidol [Isovue-300 (61%)] 150 ml IV . DIRECTED Sodium Chloride 0.9% [Normal Saline] 80 ml IV ASDIRECTED - Assessment/Plan Last 24 Hours: My Active Orders 10/08/17 19:49 Sodium Chloride 0.9% [Saline Flush] 10 ml FLUSH ASDIRECTED PRN Saline Lock Insert [OM.PC] Urgent 10/08/17 19:51 Abdomen Pelvis w Cont [CT] Stat 10/08/17 20:00 Iopamidol [Isovue-300 (61%)] 150 ml IV . DIRECTED Sodium Chloride 0.9% [Normal Saline] 80 ml IV ASDIRECTED
== END 2017-10-08 22:33 | disposition home or self-care (01) ==
LOC: JP.ED 18:24
DX: Z48.816 Encounter for surgical aftercare following surgery on the genitourinary system (principal); S30.1XXA Contusion of abdominal wall, initial encounter; F17.210 Nicotine dependence, cigarettes, uncomplicated; E66.9 Obesity, unspecified; Z88.6 Allergy status to analgesic agent; Z79.899 Other long term (current) drug therapy; X58.XXXA Exposure to other specified factors, initial encounter
CPT/HCPCS: 36415; 74177; 80053; 81001; 85025; 99284; A9270; J7030; J7050; 99283

== ENCOUNTER 2018-03-01 19:06 | Emergency (ER) | payer MEDICAID ==
[2018-03-01 19:55] VITALS: BP 141/87
--- NOTE | 2018-03-01 20:25 | EDM.PDOC ---
ED HPI GENERAL MEDICAL PROBLEM - General Chief Complaint: ENT Problem Stated Complaint: MOUTH INFECTION Time Seen by Provider: 03/01/18 20:12 Source of Information: Reports: Patient History Limitations: Reports: No Limitations - History of Present Illness INITIAL COMMENTS - FREE TEXT/NARRATIVE: Patient presents today for complaints of increased pain to site of dental extractions 3 days ago. She denies fever, chills, nausea, vomiting or other concerns. 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: Reports: Polycystic Ovaries, Endocrine/Metabolic History: Reports: Obesity/BMI 30+ Hematologic History: Reports: Blood Transfusion(s) - Infectious Disease History Infectious Disease History: Reports: Chicken Pox - Past Surgical History Female Surgical History: Reports: Section, Hysterectomy, Other (See Below) Other Female Surgeries/Procedures: Procedure done to check for uterine cancer Social & Family History - Family History Family Medical History: Noncontributory - Tobacco Use Smoking Status *Q: Current Some Day Smoker Years of Tobacco use: 20 Packs/Tins Daily: 0.5 Second Hand Smoke Exposure: Yes - Caffeine Use Caffeine Use: Reports: Coffee, Soda - Recreational Drug Use Recreational Drug Use: No ED ROS ENT - Review of Systems Review Of Systems: See Below Constitutional: Denies: Fever, Chills, Malaise, Weakness HEENT: Reports: Dental Pain, Other (Pain radiating to left cheek). Denies: Ear Discharge, Ear Pain, Eye Pain, Nose Pain, Throat Pain, Throat Swelling Respiratory: Reports: No Symptoms Cardiovascular: Reports: No Symptoms GI/Abdominal: Reports: No Symptoms Musculoskeletal: Reports: No Symptoms Skin: Denies: Rash, Erythema, Wound Neurological: Reports: No Symptoms Psychiatric: Reports: No Symptoms Hematologic/Lymphatic: Reports: No Symptoms Immunologic: Reports: No Symptoms ED EXAM, ENT - Physical Exam Exam: See Below Text/Narrative:: Tierney presents to the emergency room tonight with complaints of worsening left upper dental pain status post extraction of two teeth 3 days ago. Exam Limited By: No Limitations General Appearance: Alert, WD/WN, Mild Distress Eye Exam: Bilateral Eye: EOMI, Normal Inspection, PERRL Ears: Normal External Exam, Normal Canal, Hearing Grossly Normal, Normal TMs Nose: Normal Inspection, Normal Mucousa, No Blood Mouth/Throat: Normal Lips, Normal Oropharynx, Dental Pain, Dental Tenderness, Gum Swelling, Other (noted white exudate over area of dental extractions,no drainage noted. No significant edema palpated. Patient tender to palpation to #10 #11. no fluctuance to surrounding tissues. Multiple severe dental caries noted. ). No: Hoarse Voice, Lip Swelling, Lip Ulcers, Oral Ulcers, Throat Swelling, Tongue Swelling, Tonsillar Erythema, Tonsillar Exudates, Tonsillar Swelling, Uvular Edema Head: Atraumatic, Normocephalic Neck: Normal Inspection, Supple, Non-Tender, Full Range of Motion. No: Lymphadenopathy (R), Lymphadenopathy (L) Respiratory/Chest: No Respiratory Distress, Lungs Clear, Normal Breath Sounds, No Accessory Muscle Use, Chest Non-Tender Cardiovascular: Normal Peripheral Pulses, Regular Rate, Rhythm, No Edema, No Murmur, No Rub Back: Normal Inspection, Full Range of Motion. No: CVA Tenderness (R), CVA Tenderness (L) Extremities: Normal Inspection, Normal Range of Motion, Non-Tender, No Pedal Edema, Normal Capillary Refill Neurological: Alert, Oriented, CN II-XII Intact, Normal Cognition, Normal Gait, No Motor/Sensory Deficits Psychiatric: Normal Affect, Normal Mood Skin: Warm, Dry, Intact, Normal Color, No Rash Lymphatic: No Adenopathy Course - Vital Signs Last Recorded V/S: Last Vital Signs Temp 36.1 C 03/01/18 19:53 Pulse 79 03/01/18 19:53 Resp 16 03/01/18 19:53 BP 141/87 H 03/01/18 19:53 Pulse Ox 97 03/01/18 19:53 - Re-Assessments/Exams Free Text/Narrative Re-Assessment/Exam: 03/01/18 20:25 [place] 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 When patient asked about fills of gabapentin, she stated she does not take it, she just fills it. She is dispensed #180 tablets for 30 days. Patient informed she would be provided clindamycin to take, she left without discharge instructions. Patient restricted to another provider. Departure - Departure Time of Disposition: 20:41 Disposition: Home, Self-Care 01 Condition: Good Clinical Impression: Dental infection, Pain, dental - Discharge Information Referrals: Karen Merino DO [Primary Care Provider] - Forms: ED Department Discharge Additional Instructions: You have been evaluated and treated for dental infection of recent extraction sites. Use ice as needed to help with discomfort. Take acetaminophen 1000mg by mouth three to four times a day as needed for pain. Push oral fluids. Follow up with your dentist for further management. Follow up with your primary provider for recheck. - Assessment/Plan Assessment:: Dental infection Dental pain Plan: Patient evaluated and treated for dental infection/pain of recent extraction sites. Use ice as needed to help with discomfort. Take acetaminophen 1000mg by mouth three to four times a day as needed for pain. Push oral fluids. Follow up with your dentist for further management. Follow up with your primary provider for recheck. Patient left without discharge instructions.
== END 2018-03-01 20:55 | disposition home or self-care (01) ==
LOC: JP.ED 19:06
DX: K04.7 Periapical abscess without sinus (principal); F17.210 Nicotine dependence, cigarettes, uncomplicated; I10 Essential (primary) hypertension; Z88.8 Allergy status to other drugs, medicaments and biological substances
CPT/HCPCS: 99283

== ENCOUNTER 2018-07-03 18:48 | Emergency (ER) | payer MEDICAID ==
[2018-07-03 19:17] VITALS: BP 148/85
[2018-07-03] MEDS ORDERED: HYDROmorphone 1 MG/ML Syringe IVPUSH ONE (19:43)
[2018-07-03] MEDS ORDERED: Ondansetron 4 MG/2 ML SDV IVPUSH ONE (19:44)
[2018-07-03] MEDS ORDERED: Sodium Chloride 0.9% 1,000 ML IV SCH (19:45)
[2018-07-03] MEDS ORDERED: diphenhydrAMINE 50 MG/ML SDV ONE (20:31)
[2018-07-03] MEDS ORDERED: diphenhydrAMINE 50 MG/ML SDV IVPUSH ONE (20:31)
[2018-07-03] MEDS ORDERED: LORazepam 2 MG/ML SDV IVPUSH ONE (21:22)
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
[2018-07-03] MEDS ORDERED: Acetaminophen/HYDROcodone 325-10 MG Tab PO ONE (22:14)
--- NOTE | 2018-07-04 08:34 | CR ---
Hand Comp Min 3V Lt CLINICAL HISTORY: Trauma FINDINGS: There is no acute fracture or dislocation of the hand. Articular surfaces are smooth. Impression: Negative
== END 2018-07-03 22:20 | disposition home or self-care (01) ==
LOC: JP.ED 18:48
DX: S01.412A Laceration without foreign body of left cheek and temporomandibular area, initial encounter (principal); S00.431A Contusion of right ear, initial encounter; S20.221A Contusion of right back wall of thorax, initial encounter; S60.222A Contusion of left hand, initial encounter; S00.03XA Contusion of scalp, initial encounter; R22.0 Localized swelling, mass and lump, head; I10 Essential (primary) hypertension; M79.89 Other specified soft tissue disorders; E11.9 Type 2 diabetes mellitus without complications; F17.210 Nicotine dependence, cigarettes, uncomplicated; Y04.2XXA Assault by strike against or bumped into by another person, initial encounter; Y92.009 Unspecified place in unspecified non-institutional (private) residence as the place of occurrence of the external cause; Z88.8 Allergy status to other drugs, medicaments and biological substances; Z79.84 Long term (current) use of oral hypoglycemic drugs; Z79.899 Other long term (current) drug therapy
CPT/HCPCS: 70450; 70486; 71250; 73130; 81001; 96361; 96374; 96375; 99285; A9270; J1170; J1200; J2060; J2405; J7030